=== PATIENT | female | born 1955 | race Caucasian/White ===

== ENCOUNTER → 2020-12-26 | Outpatient (CLI) | payer BC ==
[2020-12-26 15:21] VITALS: BP 126/79; PULSE 89; RESP 18; TEMP 98.6
--- NOTE | 2020-12-26 16:05 | P.GSHP ---
History of Present Illness H&P Date: 12/26/20 Chief Complaint: abnormal right breast mammogram This is a 65-year-old white female seen in consultation for Dr. Morris regarding a radiographic abnormality in the right breast. Her last bilateral mammogram was April 23 at [facility]. Approximately a month ago she noted a lump in her right breast and a repeat right breast mammogram and ultrasound was performed. The right breast mammogram showed scattered fibroglandular densities within the breast with no dominant mass or suspicious calcifications. A right breast ultrasound performed on 12/18/2020 the same date revealed an echogenic focus with shadowing which did not correspond to the palpable abnormality at the 11 o'clock position 3 cm from the nipple. There was an oil cyst seen on mammogram that likely corresponded to the ultrasound abnormality. At the site of palpable abnormality there was no solid or cystic lesion. Recommendation was follow-up breast ultrasound of the right breast in 3-6 months. The patient is to stay for a bilateral mammogram in March 2021. The patient states that she continues to feel a palpable fullness at the 12 o'clock position of the right breast. She does not have pain in her breast. She is not complaining of nipple discharge or skin changes. Caffeine: 2 cups coffee/day nicotine: none laura-bromine: rare hormones: none Family History; mother: two types of breast cancer, spread to liver sister: bilateral mastectomy (Lory Osorio) maternal great aunt: breast cancer maternal grandmother: uterine cancer Hormonal History: menarche: 18 , breast fed: yes, age at : 24 menopause: 50 BCP: 8 years hormones: 1 year Surgical History: Tubal ligation right torn meniscus repair left carpal tunnel lap choly left knee Medical History: DM controlled by pills HTN rheumatoid arthritis low iron CKD (chronic kidney disease) Social History: smoke: < 1PPD stopped 15 years ago, smoked 3/PPD alcohol: rare drugs: none - Constitutional Constitutional: Reports sweats - EENT Eyes: denies blurred vision, denies pain Ears: deny: decreased hearing, tinnitus Ears, nose, mouth and throat: Denies headache, Denies sore throat - Breasts Breasts: bilateral: as per HPI - Cardiovascular Cardiovascular: Denies chest pain, Denies shortness of breath - Respiratory Respiratory: Denies cough, Denies 7 - Gastrointestinal Gastrointestinal: Denies abdominal pain, Denies diarrhea, Denies nausea, Denies vomiting - Genitourinary (Female) Genitourinary: Denies dysuria, Denies hematuria - Menstruation Menstruation: Reports postmenopausal - Musculoskeletal Comment: arthritis - Integumentary Integumentary: Denies pruritus, Denies rash - Neurological Neurological: Denies numbness, Denies weakness - Psychiatric Psychiatric: Denies anxiety, Denies depression - Endocrine Endocrine: Denies fatigue, Denies weight change - Hematologic/Lymphatic Comment: none - Allergic/Immunologic Allergic/Immunologic: Reports seasonal allergies Past Medical History History of Any Multi-Drug Resistant Organisms: None Reported Smoking Status: Former smoker Medications and Allergies Home Medications Medication Instructions Recorded Confirmed Type Abatacept [Orencia] 125 mg SQ WEEKLY 12/26/20 12/26/20 History Aspirin 81 mg PO DAILY 12/26/20 12/26/20 History Calcium Carbonate/Vitamin D3 1 tab PO DAILY 12/26/20 12/26/20 History [Calcium 250-D Tablet] Fluticasone Nasal [place] [Flonase 2 spr EA NOSTRIL DAILY 12/26/20 12/26/20 History Nasal [place]] Folic Acid 1 mg PO DAILY 12/26/20 12/26/20 History Gemfibrozil [Lopid] 600 mg PO AC-BID 12/26/20 12/26/20 History Losartan Potassium 50 mg PO DAILY 12/26/20 12/26/20 History Methotrexate [Xatmep Oral Soln] 0 mg PO DAILY 12/26/20 12/26/20 History Multivitamin [Multivitamins Adult 1 tab PO DAILY 12/26/20 12/26/20 History Gummies] Omeprazole 20 mg PO DAILY 12/26/20 12/26/20 History metFORMIN HCL 1,000 mg PO BID 12/26/20 12/26/20 History Allergies Allergy/AdvReac Type Severity Reaction Status Date / Time adhesive tape Allergy Rash/Hives Unverified 12/26/20 15:11 codeine Allergy Rapid Unverified 12/26/20 15:11 Heart Rate ferumoxytol [From Feraheme] Allergy Anaphylaxis Unverified 12/26/20 15:11 iron Allergy Anaphylaxis Unverified 12/26/20 15:11 latex Allergy Rash/Hives Unverified 12/26/20 15:11 lisinopril Allergy Cough Unverified 12/26/20 15:11 Surgical - Exam Vital Signs Temp Pulse Resp BP Pulse Ox 98.6 F 89 18 126/79 99 12/26/20 15:17 12/26/20 15:17 12/26/20 15:17 12/26/20 15:17 12/26/20 15:17 - General no distress - Eyes normal ocular movement - ENT normal pinna, normal mucosa - Neck no masses, trachea midline - Respiratory normal expansion, normal respiratory effort, clear to auscultation - Cardiovascular Rhythm: regular Heart Sounds: normal: S1, S2 - Abdomen Abdomen: soft, bowel sounds - Integumentary normal turgor - Neurologic no disoriented, no combative - Musculoskeletal normal gait - Psychiatric oriented to time, oriented to person, oriented to place, speech is normal, memory intact Breast exam: BRA: 42 C or D inspection: Grade 3 ptosis bilaterally Palpation: Right breast: Multi-positional exam a cystic changes slightly increased fullness at the 12 o'clock position in the vicinity which the patient is concerned no discrete mass noted Right axilla: No adenopathy of concern Left breast: Multiple positional exam no dominant masses or nodules of concern Left axilla: No adenopathy of concern Results Mammogram and ultrasound results reviewed for the right breast pending results on the left breast Assessment and Plan Assessment: Impression: For this right breast 12 o'clock position most likely fibrocystic changes Mammogram and ultrasound of right breast no discrete lesions of concern Fibrocystic breast changes Family history of breast cancer DM controlled by pills HTN rheumatoid arthritis low iron CKD (chronic kidney disease) Plan: MRI of the breast if insurance will cover that FNA of the breast plate at 12:00 Patient requested to stop Motrin and aspirin prior to the FNA CC: Dr. Cole encounter; 45 minutes time spent on review of medical records, physical examination, and counseling.
== END | disposition home or self-care (01) ==
LOC: WWCWWP 14:53
PROVIDERS: ATTEND Surgery
DX: Z53.9 Procedure and treatment not carried out, unspecified reason (principal)

== ENCOUNTER → 2021-01-23 | Outpatient (CLI) | payer BC ==
--- NOTE | 2021-01-23 10:22 | P.PN ---
Progress Note - Text Progress Note Date: 01/23/21 Joselyn [place] a 65[place] [id number]. At that time a fullness in the 12 o'clock position of the right breast was identified. It was requested that an MRI be performed however this was denied by her insurance company. At this time we are going to do an FNA of the area of concern in the right breast. She was taking Motrin and aspirin at the time of her original examination and she has stopped this for approximately week. On examination the area of concern in the right breast was again palpated. This was at the 12 o'clock position of the right breast. The area was prepped using alcohol A 22-gauge needle on a 12 mL syringe was inserted into the area of concern nega tive pressure was applied multiple passes were made into the area of fullness Specimen was sent to pathology Patient will follow up next week for results. Cc: Dr. Cruz
[2021-01-23 10:36] VITALS: BP 141/85; PULSE 82; RESP 18; TEMP 98.1
== END | disposition home or self-care (01) ==
LOC: WWCWWP 10:01
PROVIDERS: ATTEND Surgery
DX: N64.59 Other signs and symptoms in breast (principal)
CPT/HCPCS: 88173

== ENCOUNTER → 2021-01-30 | Outpatient (CLI) | payer BC ==
[2021-01-30 13:56] VITALS: BP 127/73; PULSE 79; RESP 18; TEMP 98.4
--- NOTE | 2021-01-30 14:17 | P.PN ---
Progress Note - Text Progress Note Date: 01/30/21 Melita is a 65-year-old white female status post FNA of the area of 12:00 in the right breast of increased nodularity. This was done and . Pathology reveals minimally cellular specimen consisting of rare clusters of bland ductal cells. This was felt to be unsatisfactory/nondiagnostic. However in view of the fact that mammogram and ultrasound were negative at this site and that this was an area of fullness but not a discrete mass is felt that this is most likely adequate and we will follow the patient conservatively. The patient tolerated the procedure without difficulty. She did have some initial bruising. She had a right breast mammogram and ultrasound done on . The feelings were that the findings in the right breast were probably benign. Recommend follow-up right breast ultrasound in 3-6 months. She is due for bilateral mammogram in March and we'll also do a right breast ultrasound at that time. Physical examination: Lungs: Clear Heart: Regular rate and rhythm Breast: Mild ecchymosis at site of FNA no evidence of hematoma or infection Impression: 1. Fibrocystic breast changes 2. Nothing to want interventional biopsy at this time 3. Bilateral mammogram in March and right breast ultrasound CC: DR. Cruz Time 15 minutes time spent in examination, reviewing results, and counselling.
== END ==
LOC: WWCWWP 13:42
PROVIDERS: ATTEND Surgery
DX: N60.11 Diffuse cystic mastopathy of right breast (principal)

== ENCOUNTER → 2021-07-17 | Outpatient (CLI) | payer BC ==
[2021-07-17 15:51] LABS: Appearance,Urine Clear (Clear); Bilirubin,Urine Negative (Negative); Blood,Urine Negative (Negative); Color,Urine Light Yellow; Glucose,Urine (UA) Negative (Negative); Ketones,Urine Negative (Negative); Leukocyte Esterase,Urine Negative (Negative); Nitrite,Urine Negative (Negative); Protein,Urine Negative (Negative); Specific Gravity,Urine 1.009 (1.001-1.035); Urobilinogen,Urine <2.0 mg/dL (<2.0)
[2021-07-17 15:57] LABS: Creatinine,Urine Random 44.9 mg/dL; Protein/Creatinine Ratio,Urine 0.245
[2021-07-17 23:37] LABS: Basophils # (A) 0.05 X 10*3/uL (0.00-0.10); Basophils % (A) 0.4 %; Eosinophils # (A) 0.47 X 10*3/uL (0.04-0.35); Eosinophils % (A) 3.8 %; HCT 35.3 % (37.2-46.3); Lymphocytes # (A) 2.17 X 10*3/uL (0.90-5.00); Lymphocytes % (A) 17.5 %; MCH 31.5 pg (27.0-32.0); MCHC 31.2 g/dL (32.0-37.0); MCV 101.1 fL (80.0-97.0); Mean Platelet Volume 11.3 fL (9.5-12.2); Monocytes # (A) 0.76 X 10*3/uL (0.20-1.00); Monocytes % (A) 6.1 %; Neutrophils # (A) 8.85 X 10*3/uL (1.80-7.70); Neutrophils % (A) 71.4 %; Platelet Count 290 X 10*3/uL (140-440); RBC 3.49 X 10*6/uL (4.10-5.20); RDW 15.3 % (11.5-14.5)
[2021-07-18 01:24] LABS: Erythrocyte Sedimentation Rate 48 mm/Hr (0-30)
[2021-07-18 04:29] LABS: Hemoglobin A1C 5.9 % (4.0-6.0)
[2021-07-18 13:15] LABS: Ferritin 229.7 ng/mL (10.0-291.0)
[2021-07-18 13:31] LABS: % Iron Saturation 33.69 (12.00-45.00); African American GFR (CKD) 61.4 (60.0-200.0); Anion Gap 15.2 mmol/L (4.00-12.00); BUN/Creat Ratio 20.91 Ratio (12.00-20.00); C Reactive Protein 0.8 mg/dL (0.0-0.8); Calcium 9.2 mg/dL (8.7-10.3); Carbon Dioxide 16.8 mmol/L (21.6-31.8); Magnesium 1.6 mg/dL (1.5-2.4); Phosphorus 4.4 mg/dL (2.4-5.1); Potassium 4.4 mmol/L (3.5-5.5)
[2021-07-18 18:54] LABS: Uric Acid 7.1 mg/dL (2.9-7.7)
== END | disposition home or self-care (01) ==
LOC: LABWHC1 14:51
PROVIDERS: ATTEND Internal Medicine Nephrology
DX: E11.22 Type 2 diabetes mellitus with diabetic chronic kidney disease (principal); N18.31 Chronic kidney disease, stage 3a; N39.0 Urinary tract infection, site not specified; N25.81 Secondary hyperparathyroidism of renal origin; E55.9 Vitamin D deficiency, unspecified; D64.9 Anemia, unspecified; M10.9 Gout, unspecified; M05.79 Rheumatoid arthritis with rheumatoid factor of multiple sites without organ or systems involvement
CPT/HCPCS: 36415; 80048; 81003; 82040; 82306; 82570; 82728; 83036; 83540; 83550; 83735; 83970; 84100; 84156; 84450; 84460; 84550; 85025; 85652; 86140

== ENCOUNTER → 2023-12-24 | Outpatient (CLI) | payer MEDICARE ==
[2023-12-24 23:02] LABS: Chol/HDL Ratio 4.56 Ratio; LDL Cholesterol,Calculated 145.7 mg/dL (0.0-131.0)
[2023-12-24 23:39] LABS: ALT 17 U/L (8-44); AST 22 U/L (13-35); Albumin 4.3 g/dL (3.8-4.9); Albumin/Globulin Ratio 1.54 Ratio (1.60-3.17); Alkaline Phosphatase 121 U/L (41-126); Bilirubin, Conjugated <0.20 mg/dL (0.20-0.40); Bilirubin,Unconjugated >0.20 mg/dL (0.20-1.00); Globulin 2.8 g/dL (1.6-3.3); Total Bilirubin 0.4 mg/dL (0.3-1.2); Total Protein 7.1 g/dL (6.2-8.2)
== END | disposition home or self-care (01) ==
LOC: LABWHC1 09:59
PROVIDERS: ATTEND Internal Medicine Interventional Cardiology
DX: E11.9 Type 2 diabetes mellitus without complications (principal); E78.5 Hyperlipidemia, unspecified
CPT/HCPCS: 36415; 80061; 80076

== ENCOUNTER → 2024-02-04 | Outpatient (CLI) | payer MEDICARE ==
[2024-02-04 13:21] LABS: Basophils # (A) 0.06 X 10*3/uL (0.00-0.10); Basophils % (A) 0.6 %; Eosinophils # (A) 0.48 X 10*3/uL (0.04-0.35); Eosinophils % (A) 4.5 %; HCT 38.3 % (37.2-46.3); HGB 12.2 g/dL (12.0-15.0); Lymphocytes # (A) 2.35 X 10*3/uL (0.90-5.00); Lymphocytes % (A) 21.8 %; MCH 30.6 pg (27.0-32.0); MCHC 31.9 g/dL (32.0-37.0); Mean Platelet Volume 10.1 FL (9.5-12.2); Monocytes # (A) 0.81 X 10*3/uL (0.20-1.00); Monocytes % (A) 7.5 %; NRBC Per 100 WBC 0 X 10*3/uL (0.00-0.01); Neutrophils # (A) 6.91 X 10*3/uL (1.80-7.70); Neutrophils % (A) 64.2 %; Platelet Count 317 X 10*3/uL (140-440); RBC 3.99 X 10*6/uL (4.10-5.20); RDW 14.9 % (11.5-14.5); WBC 10.76 X 10*3/uL (4.50-10.00)
[2024-02-04 14:14] LABS: ALT 16 U/L (8-44); AST 14 U/L (13-35); Albumin 4.1 g/dL (3.8-4.9); Albumin/Globulin Ratio 1.64 Ratio (1.60-3.17); Alkaline Phosphatase 113 U/L (41-126); Blood Urea Nitrogen 27.3 mg/dL (9.0-27.0); Carbon Dioxide 24.9 mmol/L (21.6-31.8); Chloride 104 mmol/L (96-109); Globulin 2.5 g/dL (1.6-3.3); Glucose 102 mg/dL (70-110); Potassium 4.7 mmol/L (3.5-5.5); Sodium 138 mmol/L (135-145); Total Bilirubin <0.2 mg/dL (0.3-1.2); Total Protein 6.6 g/dL (6.2-8.2)
== END | disposition home or self-care (01) ==
LOC: LABWHC1 09:31
PROVIDERS: ATTEND Family Medicine
DX: E11.9 Type 2 diabetes mellitus without complications (principal); E78.2 Mixed hyperlipidemia
CPT/HCPCS: 36415; 80053; 83036; 85025

== ENCOUNTER → 2024-04-26 | Outpatient (CLI) | payer MEDICARE ==
[2024-04-26 15:55] LABS: % Iron Saturation 18.25 (12.00-45.00); Albumin 4.3 g/dL (3.8-4.9); Blood Urea Nitrogen 18.8 mg/dL (9.0-27.0); Calcium 9.6 mg/dL (8.7-10.3); Carbon Dioxide 21.5 mmol/L (21.6-31.8); Chloride 108 mmol/L (96-109); Glucose 83 mg/dL (70-110); Iron 48 UG/DL (50-170); Magnesium 1.9 mg/dL (1.5-2.4); Phosphorus 4.6 mg/dL (2.4-5.1); Potassium 4.6 mmol/L (3.5-5.5); Sodium 145 mmol/L (135-145); Total Iron Binding Capacity 263 UG/DL (228-460)
[2024-04-26 16:02] LABS: Basophils # (A) 0.04 X 10*3/uL (0.00-0.10); Basophils % (A) 0.4 %; Eosinophils # (A) 0.31 X 10*3/uL (0.04-0.35); Eosinophils % (A) 2.8 %; HCT 38.4 % (37.2-46.3); HGB 12.3 g/dL (12.0-15.0); Lymphocytes # (A) 2.36 X 10*3/uL (0.90-5.00); MCH 30.1 pg (27.0-32.0); MCV 94.1 FL (80.0-97.0); Mean Platelet Volume 10.6 FL (9.5-12.2); Monocytes # (A) 0.85 X 10*3/uL (0.20-1.00); Monocytes % (A) 7.6 %; NRBC Per 100 WBC 0 X 10*3/uL (0.00-0.01); Neutrophils # (A) 7.48 X 10*3/uL (1.80-7.70); Neutrophils % (A) 66.6 %; Platelet Count 294 X 10*3/uL (140-440); RBC 4.08 X 10*6/uL (4.10-5.20); RDW 14.9 % (11.5-14.5); WBC 11.22 X 10*3/uL (4.50-10.00)
[2024-04-26 21:12] LABS: Appearance,Urine Clear (Clear); Bilirubin,Urine Negative (Negative); Blood,Urine Negative (Negative); Color,Urine Yellow (Yellow); Ketones,Urine Negative (Negative); Nitrite,Urine Negative (Negative); Specific Gravity,Urine 1.012 (1.001-1.030); Urobilinogen,Urine 0.2 E.U./DL
[2024-04-26 21:58] LABS: Bacteria,Urine Trace (None Seen)
[2024-04-26 23:31] LABS: Microalbumin Creatinine Ratio <22 mg/g Cr (0-30)
== END | disposition home or self-care (01) ==
LOC: LABWHC1 11:09
PROVIDERS: ATTEND Internal Medicine Nephrology
DX: N25.81 Secondary hyperparathyroidism of renal origin (principal); N18.31 Chronic kidney disease, stage 3a; D63.1 Anemia in chronic kidney disease; E55.9 Vitamin D deficiency, unspecified; M10.9 Gout, unspecified; N39.0 Urinary tract infection, site not specified; R80.9 Proteinuria, unspecified
CPT/HCPCS: 36415; 80048; 81001; 82040; 82043; 82306; 82570; 82728; 83540; 83550; 83735; 83970; 84100; 84550; 85025

== ENCOUNTER → 2024-05-25 | Outpatient (CLI) | payer MEDICARE ==
[2024-05-25 18:29] LABS: ALT 16 U/L (8-44); AST 18 U/L (13-35); Albumin 4.3 g/dL (3.8-4.9); Albumin/Globulin Ratio 1.79 Ratio (1.60-3.17); Alkaline Phosphatase 122 U/L (41-126); Bilirubin, Conjugated <0.20 mg/dL (0.20-0.40); Bilirubin,Unconjugated >0.10 mg/dL (0.20-1.00); Blood Urea Nitrogen 18.1 mg/dL (9.0-27.0); Calcium 9.3 mg/dL (8.7-10.3); Carbon Dioxide 23.8 mmol/L (21.6-31.8); Chloride 97 mmol/L (96-109); Chol/HDL Ratio 5.47 Ratio; Globulin 2.4 g/dL (1.6-3.3); Glucose 102 mg/dL (70-110); LDL Cholesterol,Calculated 123.7 mg/dL (0.0-131.0); Potassium 5.1 mmol/L (3.5-5.5); Sodium 133 mmol/L (135-145); Total Bilirubin 0.3 mg/dL (0.3-1.2); Total Protein 6.7 g/dL (6.2-8.2)
--- NOTE | 2024-05-25 22:36 | US ---
EXAMINATION TYPE: US kidneys/renal and bladder DATE OF EXAM: 05/25/2024 COMPARISON: NONE CLINICAL INDICATION: Female, 68 years old with history of N18.2 CHRONIC KIDNEY DISEASE, STAGE 2 (MILD ); CKD EXAM MEASUREMENTS: Right Kidney: 11.3 x 4.7 x 4.8 cm Left Kidney: 9.5 x 4.8 x 5.0 cm Right Kidney: Hyperechoic area seen mid lateral border measuring 1.3 x 1.1 x 0.7cm ? angiomyolipoma v s other etiology Left Kidney: No hydronephrosis or masses seen Bladder: wnl Bilateral Jets seen: No, waited full 3 min There is no evidence for hydronephrosis at this point in time. No nephrolithiasis is seen. Cortical medullary differentiation is maintained. No left renal masses identified. Hyperechoic area seen withi n the mid lateral border of the right kidney measuring up to 1.3 cm. The urinary bladder is anechoic. Bilateral ureteral jets are not seen. IMPRESSION: 1. No hydronephrosis or nephrolithiasis. 2. Indeterminate hyperechoic region within the right kidney. Etiologies include an angiomyolipoma mary jose luis renal sinus fat with malignancy not excluded. Further evaluation with CT or MR abdomen renal mass protocol is recommended.
== END | disposition home or self-care (01) ==
LOC: RADUSWWP 10:18
PROVIDERS: ATTEND Internal Medicine Nephrology
DX: N18.2 Chronic kidney disease, stage 2 (mild) (principal); E78.5 Hyperlipidemia, unspecified; Z82.49 Family history of ischemic heart disease and other diseases of the circulatory system
CPT/HCPCS: 76770; 80053; 80061; 82248

== ENCOUNTER → 2024-06-08 | Outpatient (CLI) | payer MEDICARE ==
--- NOTE | 2024-06-08 09:46 | CT ---
EXAMINATION TYPE: CT abdomen wo con CT DLP: 860.20 mGycm, Automated exposure control for dose reduction was used. DATE OF EXAM: 06/08/2024 9:01 AM COMPARISON: ultrasound 05/17/2024 CLINICAL INDICATION:Female, 68 years old with history of N28.9 kidney lesion; f/u kidney lesion/abnor mal US. TECHNIQUE: Axial CT abdomen wo con;Sagittal and coronal reformats were created on a separate worksta tion. Contrast used: mL of , (none if empty) Oral contrast used: with Oral Contrast (none if empty) FINDINGS: LOWER CHEST: Unremarkable ABDOMEN LIVER: Unremarkable GALLBLADDER AND BILE DUCTS: The gallbladder is surgically absent. PANCREAS: Unremarkable. SPLEEN: Unremarkable. ADRENAL GLANDS: Unremarkable. KIDNEYS AND URETERS: Interdigitating into the right kidney slightly, this correlates with ultrasound imaging. Evaluation limited without IV contrast. Lobular contour to both kidneys decreased size of th e left compared to right. No evidence of hydronephrosis or renal calculus. The visualized ureters are unremarkable. STOMACH AND BOWEL: No evidence of bowel obstruction. The appendix is normal. PERITONEUM/RETROPERITONEUM: No evidence of pneumoperitoneum or free fluid. VASCULATURE: Mild atherosclerotic calcifications are present throughout the abdominal aorta and its b ranches. No evidence of aortic aneurysm. MUSCULOSKELETAL: No acute osseous abnormalities LYMPH NODES: No gross evidence for lymphadenopathy. SOFT TISSUE/ABDOMINAL WALL: Unremarkable IMPRESSION: Interdigitating into the right kidney slightly, this correlates with ultrasound imaging. Evaluation l imited without multiphase exam with IV contrast.
== END | disposition home or self-care (01) ==
LOC: RADCTMAIN 08:02
PROVIDERS: ATTEND Internal Medicine Nephrology
DX: N28.9 Disorder of kidney and ureter, unspecified (principal)
CPT/HCPCS: 74150

== ENCOUNTER → 2024-10-30 | Outpatient (CLI) | payer MEDICARE ==
[2024-10-30 19:53] LABS: Basophils # (A) 0.09 X 10*3/uL (0.00-0.10); Basophils % (A) 0.7 %; Eosinophils # (A) 0.48 X 10*3/uL (0.04-0.35); Eosinophils % (A) 3.6 %; HCT 38.7 % (37.2-46.3); HGB 12.2 g/dL (12.0-15.0); Lymphocytes # (A) 2.86 X 10*3/uL (0.90-5.00); Lymphocytes % (A) 21.6 %; MCH 29.7 pg (27.0-32.0); MCHC 31.5 g/dL (32.0-37.0); MCV 94.2 FL (80.0-97.0); Mean Platelet Volume 10.1 FL (9.5-12.2); Monocytes # (A) 0.84 X 10*3/uL (0.20-1.00); Monocytes % (A) 6.3 %; NRBC Per 100 WBC 0 X 10*3/uL (0.00-0.01); Neutrophils # (A) 8.89 X 10*3/uL (1.80-7.70); Platelet Count 324 X 10*3/uL (140-440); RBC 4.11 X 10*6/uL (4.10-5.20); RDW 15.8 % (11.5-14.5); WBC 13.27 X 10*3/uL (4.50-10.00)
[2024-10-30 20:00] LABS: % Iron Saturation 15.52 (12.00-45.00); BUN/Creat Ratio 21.36 Ratio (12.00-20.00); Blood Urea Nitrogen 23.5 mg/dL (9.0-27.0); Calcium 9.6 mg/dL (8.7-10.3); Carbon Dioxide 17.3 mmol/L (21.6-31.8); Chloride 104 mmol/L (96-109); Glucose 90 mg/dL (70-110); Iron 43 UG/DL (50-170); Magnesium 1.9 mg/dL (1.5-2.4); Phosphorus 4.2 mg/dL (2.4-5.1); Potassium 4.9 mmol/L (3.5-5.5); Sodium 138 mmol/L (135-145); Total Iron Binding Capacity 277 UG/DL (228-460); Uric Acid 6.4 mg/dL (2.9-7.7)
[2024-10-30 20:43] LABS: Appearance,Urine Clear (Clear); Bilirubin,Urine Negative (Negative); Blood,Urine Negative (Negative); Color,Urine Yellow (Yellow); Ketones,Urine Negative (Negative); Nitrite,Urine Negative (Negative); Specific Gravity,Urine 1.016 (1.001-1.030)
[2024-10-30 20:45] LABS: Bacteria,Urine Trace (None Seen)
[2024-10-30 21:55] LABS: Microalbumin Creatinine Ratio <15 mg/g Cr (0-30); Urine Creatinine 78.5 mg/dL (28.0-217.0)
== END | disposition home or self-care (01) ==
LOC: LABWHC1 13:05
PROVIDERS: ATTEND Nurse Practitioner Family
DX: E55.9 Vitamin D deficiency, unspecified (principal); N18.2 Chronic kidney disease, stage 2 (mild); N25.81 Secondary hyperparathyroidism of renal origin; M10.9 Gout, unspecified; N39.0 Urinary tract infection, site not specified; D64.9 Anemia, unspecified; R80.9 Proteinuria, unspecified
CPT/HCPCS: 36415; 80048; 81001; 82043; 82306; 82570; 83540; 83550; 83735; 83970; 84100; 84550; 85025

== ENCOUNTER → 2024-12-03 | Outpatient (CLI) | payer MEDICARE ==
--- NOTE | 2024-12-03 10:50 | US ---
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 Bladder: wnl Bilateral Jets seen: No Normal Post Void Residual: NA There is no evidence for hydronephrosis at this point in time. No nephrolithiasis is seen. The urina ry bladder is adequately distended. IMPRESSION: Slightly more prominent 1.7 cm indeterminate hyperechoic area midpole level right kidney without obvi ous corresponding abnormality on noncontrast CT. Consider renal protocol CT or MRI study to further e valuate. [facility], , 12/03/2024 10:48 AM
== END | disposition home or self-care (01) ==
LOC: RADUSWWP 10:11
PROVIDERS: ATTEND Urology
DX: D41.01 Neoplasm of uncertain behavior of right kidney (principal)
CPT/HCPCS: 76770

== ENCOUNTER → 2025-05-20 | Outpatient (CLI) | payer MEDICARE ==
[2025-05-20 15:12] LABS: Basophils # (A) 0.09 X 10*3/uL (0.00-0.10); Basophils % (A) 0.9 %; Eosinophils # (A) 0.35 X 10*3/uL (0.04-0.35); Eosinophils % (A) 3.4 %; HCT 40.5 % (37.2-46.3); HGB 12.5 g/dL (12.0-15.0); Lymphocytes # (A) 2.38 X 10*3/uL (0.90-5.00); MCH 30.1 pg (27.0-32.0); MCHC 30.9 g/dL (32.0-37.0); MCV 97.6 FL (80.0-97.0); Mean Platelet Volume 10.1 FL (9.5-12.2); Monocytes # (A) 0.62 X 10*3/uL (0.20-1.00); NRBC Per 100 WBC 0.03 X 10*3/uL (0.00-0.01); Neutrophils # (A) 6.76 X 10*3/uL (1.80-7.70); Neutrophils % (A) 65.3 %; Platelet Count 306 X 10*3/uL (140-440); RBC 4.15 X 10*6/uL (4.10-5.20); RDW 15.3 % (11.5-14.5); WBC 10.34 X 10*3/uL (4.50-10.00)
[2025-05-20 15:22] LABS: Appearance,Urine Clear (Clear); Bilirubin,Urine Negative (Negative); Blood,Urine Negative (Negative); Color,Urine Yellow (Yellow); Ketones,Urine Negative (Negative); Nitrite,Urine Negative (Negative); Urobilinogen,Urine 0.2 E.U./DL
[2025-05-20 15:37] LABS: % Iron Saturation 18.46 (12.00-45.00); Albumin 3.9 g/dL (3.8-4.9); BUN/Creat Ratio 21.75 Ratio (12.00-20.00); Blood Urea Nitrogen 26.1 mg/dL (9.0-27.0); Calcium 9.2 mg/dL (8.7-10.3); Carbon Dioxide 19.4 mmol/L (21.6-31.8); Chloride 106 mmol/L (96-109); Glucose 107 mg/dL (70-110); Iron 48 UG/DL (50-170); Phosphorus 3.8 mg/dL (2.4-5.1); Potassium 4.5 mmol/L (3.5-5.5); Sodium 138 mmol/L (135-145); Total Iron Binding Capacity 260 UG/DL (228-460)
[2025-05-20 15:40] LABS: Bacteria,Urine None Seen (None Seen)
[2025-05-20 21:30] LABS: Microalbumin Creatinine Ratio <51 mg/g Cr (0-30); Urine Creatinine 23.5 mg/dL (28.0-217.0)
== END | disposition home or self-care (01) ==
LOC: LABWHC1 10:50
PROVIDERS: ATTEND Nurse Practitioner Family
DX: N18.2 Chronic kidney disease, stage 2 (mild) (principal)
CPT/HCPCS: 36415; 80048; 81001; 82040; 82043; 82306; 82570; 82728; 83540; 83550; 83735; 83970; 84100; 84550; 85025

== ENCOUNTER → 2025-06-10 | Outpatient (CLI) | payer MEDICARE ==
--- NOTE | 2025-06-10 11:02 | US ---
EXAMINATION TYPE: US kidneys/renal and bladder DATE OF EXAM: 06/10/2025 COMPARISON: 12/03/2024 CLINICAL INDICATION: Female, 69 years old with history of D41.01 RENAL MASS; follow up right renal le bari per patient TECHNIQUE: Grayscale imaging of the bilateral kidneys and urinary bladder: FINDINGS: EXAM MEASUREMENTS: Right Kidney: 10.6 x 5.4 x 5.6 cm Left Kidney: 8.3 x 3.9 x 4.5 cm Right Kidney: lateral mid echogenic lesion = 1.2 x 0.9 x 1.0 cm. Previously measured at 1.9 cm. No hy dronephrosis. Left Kidney: appears smaller in size compared to contralateral kidney. No hydronephrosis. Bladder: No gross abnormality. Bilateral Jets seen IMPRESSION: 1. Right midpole cortical lesion measuring 1.2 cm has a similar echogenic appearance. Findings are no nspecific. Size is stable to smaller from prior. Ongoing surveillance ultrasound follow-up advised to exclude indolent neoplasm. 2. No hydronephrosis. [facility], , 06/10/2025 11:00 AM
== END | disposition home or self-care (01) ==
LOC: RADUSWWP 10:23
PROVIDERS: ATTEND Urology
DX: D41.01 Neoplasm of uncertain behavior of right kidney (principal); N28.89 Other specified disorders of kidney and ureter
CPT/HCPCS: 76770